=== PATIENT | female | born 1975 | race Two or more races ===

== ENCOUNTER 2018-03-02 07:30 | Outpatient (CLI) | payer OTHER ==
[~2018-03-02 07:30] MED LIST: PREDNISONE5 MG/DOSE- PO; RELAFEN500 MG PO; TRAMADOL HCL50 MG PO
== END 2018-03-02 10:01 | disposition home or self-care (01) ==
LOC: MAMO-SONO 07:30
DX: N64.89 Other specified disorders of breast (principal)

== ENCOUNTER 2018-03-02 07:51 | Outpatient (CLI) | payer OTHER | END 2018-03-02 07:57 | disposition home or self-care (01) | LOC: LAB 07:51 | DX: N95.1 Menopausal and female climacteric states (principal); E04.1 Nontoxic single thyroid nodule; E78.2 Mixed hyperlipidemia; E55.9 Vitamin D deficiency, unspecified; E28.39 Other primary ovarian failure ==

== ENCOUNTER 2018-05-28 11:07 | Outpatient (CLI) | payer OTHER | END 2018-05-28 11:15 | disposition home or self-care (01) | LOC: SONOGRAMA 11:07 | DX: N63.32 Unspecified lump in axillary tail of the left breast (principal); N60.11 Diffuse cystic mastopathy of right breast; N60.12 Diffuse cystic mastopathy of left breast ==

== ENCOUNTER 2018-10-13 14:22 | Outpatient (CLI) | payer OTHER | END 2018-10-13 14:41 | disposition home or self-care (01) | LOC: SONOGRAMA 14:22 | DX: N60.11 Diffuse cystic mastopathy of right breast (principal); N60.12 Diffuse cystic mastopathy of left breast ==

== ENCOUNTER 2019-06-07 09:02 | Outpatient (CLI) | payer OTHER | END 2019-06-07 09:10 | disposition home or self-care (01) | LOC: LAB 09:02 | DX: N95.1 Menopausal and female climacteric states (principal); E28.39 Other primary ovarian failure; E78.00 Pure hypercholesterolemia, unspecified; E55.9 Vitamin D deficiency, unspecified; E04.1 Nontoxic single thyroid nodule ==

== ENCOUNTER 2019-06-07 09:31 | Outpatient (CLI) | payer OTHER | END 2019-06-07 10:23 | disposition home or self-care (01) | LOC: MAMO-SONO 09:31 | DX: Z12.31 Encounter for screening mammogram for malignant neoplasm of breast (principal); N60.12 Diffuse cystic mastopathy of left breast; N60.11 Diffuse cystic mastopathy of right breast ==

== ENCOUNTER 2020-09-05 07:12 | Outpatient (CLI) | payer OTHER | END 2020-09-05 18:00 | disposition home or self-care (01) | LOC: LAB 07:12 | PROVIDERS: ATTEND Obstetrics & Gynecology | DX: E28.39 Other primary ovarian failure (principal); N95.1 Menopausal and female climacteric states; E04.1 Nontoxic single thyroid nodule; E55.9 Vitamin D deficiency, unspecified; E78.00 Pure hypercholesterolemia, unspecified ==

== ENCOUNTER 2020-09-05 08:48 | Outpatient (CLI) | payer OTHER | END 2020-09-05 08:58 | disposition home or self-care (01) | LOC: MAMO-SONO 08:48 | PROVIDERS: ATTEND Obstetrics & Gynecology | DX: Z12.31 Encounter for screening mammogram for malignant neoplasm of breast (principal); N60.11 Diffuse cystic mastopathy of right breast; N60.12 Diffuse cystic mastopathy of left breast ==

== ENCOUNTER 2021-11-20 08:44 | Outpatient (CLI) | payer OTHER | END 2021-11-20 10:05 | disposition home or self-care (01) | LOC: MAMO-SONO 08:44 | PROVIDERS: ATTEND Obstetrics & Gynecology | DX: Z12.31 Encounter for screening mammogram for malignant neoplasm of breast (principal); N60.11 Diffuse cystic mastopathy of right breast; N60.12 Diffuse cystic mastopathy of left breast ==

== ENCOUNTER → 2021-11-20 09:58 | Outpatient (CLI) | payer OTHER | END | disposition home or self-care (01) | LOC: LAB 07:58 | PROVIDERS: ATTEND Obstetrics & Gynecology | DX: N95.1 Menopausal and female climacteric states (principal); E04.1 Nontoxic single thyroid nodule; E55.9 Vitamin D deficiency, unspecified; E78.00 Pure hypercholesterolemia, unspecified; E08.00 Diabetes mellitus due to underlying condition with hyperosmolarity without nonketotic hyperglycemic-hyperosmolar coma (NKHHC); N94.89 Other specified conditions associated with female genital organs and menstrual cycle ==

== ENCOUNTER 2021-11-22 07:47 | Outpatient (CLI) | payer OTHER | END 2021-11-22 07:56 | disposition home or self-care (01) | LOC: LAB 07:47 | PROVIDERS: ATTEND Obstetrics & Gynecology | DX: N95.1 Menopausal and female climacteric states (principal); E04.1 Nontoxic single thyroid nodule; E55.9 Vitamin D deficiency, unspecified; E78.00 Pure hypercholesterolemia, unspecified; N94.89 Other specified conditions associated with female genital organs and menstrual cycle ==

== ENCOUNTER 2023-02-05 12:08 | Outpatient (CLI) | payer OTHER | END 2023-02-05 12:16 | disposition home or self-care (01) | LOC: MAMO-SONO 12:08 | PROVIDERS: ATTEND Obstetrics & Gynecology | DX: Z12.31 Encounter for screening mammogram for malignant neoplasm of breast (principal); N60.11 Diffuse cystic mastopathy of right breast; N60.12 Diffuse cystic mastopathy of left breast ==

== ENCOUNTER → 2023-02-05 | Outpatient (CLI) | payer OTHER | END | disposition home or self-care (01) | LOC: LAB 08:27 | PROVIDERS: ATTEND Obstetrics & Gynecology | DX: N95.1 Menopausal and female climacteric states (principal); E28.39 Other primary ovarian failure; E04.1 Nontoxic single thyroid nodule; E55.9 Vitamin D deficiency, unspecified; E78.00 Pure hypercholesterolemia, unspecified; E08.00 Diabetes mellitus due to underlying condition with hyperosmolarity without nonketotic hyperglycemic-hyperosmolar coma (NKHHC); N39.0 Urinary tract infection, site not specified; R19.5 Other fecal abnormalities; R97.8 Other abnormal tumor markers; E11.9 Type 2 diabetes mellitus without complications; K76.9 Liver disease, unspecified ==